=== PATIENT | male | born 1955 | race Caucasian/White ===

== ENCOUNTER 2021-10-08 08:54 | Day surgery (SDC) | payer MEDICARE, BC ==
[2021-10-08] MEDS ORDERED: Lactated Ringers 1,000 ML IV SCH (09:00)
[2021-10-08] MEDS ORDERED: Sodium Chloride 0.9% 10 ML Syringe FLUSH PRN (09:00)
[2021-10-08] MEDS ORDERED: Midazolam 1 MG/ML 2 ML SDV ONE (10:08)
[2021-10-08] MEDS ORDERED: Propofol 200 MG/20 ML SDV ONE (10:09)
[2021-10-08 11:42] VITALS: BP 122/72; PULSE 65
--- NOTE | 2021-10-08 12:52 | PCM.PRNOTE ---
- Free Text/Narrative Note: PROCEDURE PERFORMED: Colonoscopy with polypectomy PRE-PROCEDURE DIAGNOSIS/INDICATION FOR PROCEDURE: Screening for colorectal cancer; 06/18/21 Cologuard positive CONSENT: Informed consent was obtained prior to the procedure after discussion of the risks (including pain, bleeding, infection, perforation, missed polyps, inability to completely remove polyps or complete procedure necessitating repeat colonoscopy, adverse reaction to anesthesia, cardiovascular event), benefits and alternatives and expected outcomes. The patient expressed understanding and wished to proceed. Verbal consent given and consent form signed. PROCEDURAL PAUSE: Completed SEDATION: Per anesthesia DESCRIPTION OF PROCEDURE: Patient was placed in the left lateral decubitus position. After adequate sedation and anesthetic was administered, a rectal exam was performed revealing enlarged prostate of 50g, but no other abnormalities. A lubricated Olympus Video Colonoscope was inserted into the rectum and air insufflation was performed. The colonoscope was advanced through the rectum, sigmoid, descending, transverse, and ascending colon without difficulties. The cecum was reached and the ileocecal valve as well as the appendiceal orifice were identified and pictorially documented. After adequate visualization of the cecum, the scope was withdrawn, giving 360-degree views of the colonic mucosa and retroflexion was performed in the rectum with the following findings noted: Ileocecal valve: Normal Cecum: Normal Ascending colon: Normal Hepatic flexure: Normal Transverse colon: Normal Splenic flexure: Normal Descending colon: Normal Sigmoid colon: At 35cm, 0.8cm polyp removed with cold snare and subsequent complete polypoid tissue removal and hemostasis noted; scattered small mouth diverticulosis Rectum: Normal The scope was straightened, air suction performed, and the scope withdrawn without complication. Preparation adequacy [place] Bowel Score 9/9. IMPRESSION: Colonoscopy performed revealing - One sigmoid polyp, pathology now pending - Sigmoid diverticulosis - Incidental note of increased prostate size at 50g PLAN: Will contact the patient when pathology results received with recommendation for repeat colonoscopy. Encourage adequate fiber diet and bowel regimen to ensure avoidance of constipation. Consider further evaluation for enlarged prostate in the future.
== END 2021-10-08 12:00 | disposition home or self-care (01) ==
LOC: KA.SDS 08:54
PROVIDERS: ATTEND Family Medicine
DX: D12.5 Benign neoplasm of sigmoid colon (principal); K57.30 Diverticulosis of large intestine without perforation or abscess without bleeding; G47.33 Obstructive sleep apnea (adult) (pediatric); I12.9 Hypertensive chronic kidney disease with stage 1 through stage 4 chronic kidney disease, or unspecified chronic kidney disease; N18.31 Chronic kidney disease, stage 3a; E66.9 Obesity, unspecified; R73.03 Prediabetes; E78.2 Mixed hyperlipidemia; J45.909 Unspecified asthma, uncomplicated; G47.30 Sleep apnea, unspecified; Z79.899 Other long term (current) drug therapy
CPT/HCPCS: 00812; J2250; J2704; J7120

== ENCOUNTER 2022-10-12 14:42 | Observation (INO) | payer MEDICARE ==
[2022-10-12] MEDS ORDERED: hydrALAZINE 20 MG/ML SDV IVPUSH ONE ×3 (15:05→20:02)
[2022-10-12] MEDS: Sodium Chloride 0.9% 10 ML Syringe FLUSH PRN ×6 (15:05→18:19)
[2022-10-12 15:48] LABS: ANION GAP 12.2 mmol/L (5-15); CHLORIDE,CL 103 mmol/L (98-107); SODIUM,NA 139 mmol/L (136-145)
[2022-10-12 15:49] LABS: ESTIMATED GFR 70 mL/min (>=60)
[2022-10-12] MEDS ORDERED: HYDROmorphone 1 MG/ML Syringe IVPUSH ONE (16:06)
[2022-10-12] MEDS ORDERED: Ondansetron 4 MG/2 ML SDV IVPUSH ONE (16:39)
[2022-10-12] MEDS ORDERED: cloNIDine 0.1 MG Tab PO ONE (17:44)
[2022-10-12] MEDS ORDERED: Ketorolac 30 MG/ML SDV IM ONE (17:59)
[2022-10-12] MEDS ORDERED: Ketorolac 30 MG/ML SDV IVPUSH ONE (17:59)
[2022-10-12 18:16] LABS: CORONAVIRUS COVID-19 NAA NEGATIVE (NEGATIVE)
[2022-10-12] MEDS ORDERED: Ondansetron 4 MG Tab.DIS PO ONE (19:06)
[2022-10-12] MEDS ORDERED: Sodium Chloride 0.9% 10 ML Syringe FLUSH PRN (19:20)
[2022-10-12] MEDS ORDERED: Sodium Chloride 0.9% 1,000 ML IV ONE ×2 (19:21→21:35)
[2022-10-12] MEDS ORDERED: Promethazine 25 MG/ML SDV IM ONE (21:35)
[2022-10-12] MEDS ORDERED: Iopamidol 755 Mg/ML 75 ML Bottle IVPUSH ONE (21:56)
[2022-10-12] MEDS ORDERED: Sodium Chloride 0.9% 50 ML IV SCH (22:00)
[2022-10-12] MEDS: hydrALAZINE 10 MG Tab PO SCH (23:22)
[2022-10-12] MEDS ORDERED: hydrALAZINE 10 MG Tab PO PRN (23:39)
[2022-10-13] MEDS ORDERED: Acetaminophen 325 MG Tab PO PRN (01:29)
[2022-10-13] MEDS: hydrALAZINE 10 MG Tab PO SCH ×2 (06:42→12:42)
[2022-10-13 07:24] LABS: ANION GAP 9.9 mmol/L (5-15)
[2022-10-13] MEDS ORDERED: Levothyroxine 112 MCG Tab PO SCH (07:30)
[2022-10-13] MEDS ORDERED: Losartan 50 MG Tab PO SCH (09:00)
[2022-10-13] MEDS ORDERED: Levothyroxine 112 MCG Tab**OWN MED PO SCH (09:15)
[2022-10-13 12:10] VITALS: BP 139/72; PULSE 70
== END 2022-10-13 12:58 | disposition home or self-care (01) ==
LOC: KA.ED 14:42 → KA.MS 23:37
PROVIDERS: ADMIT Nurse Practitioner; ATTEND Nurse Practitioner
DX: I10 Essential (primary) hypertension (principal); G44.1 Vascular headache, not elsewhere classified; G43.809 Other migraine, not intractable, without status migrainosus; G93.0 Cerebral cysts; I65.23 Occlusion and stenosis of bilateral carotid arteries; I65.02 Occlusion and stenosis of left vertebral artery; J98.11 Atelectasis; I44.0 Atrioventricular block, first degree; Z20.822 Contact with and (suspected) exposure to COVID-19; Z79.899 Other long term (current) drug therapy; Z79.82 Long term (current) use of aspirin; Z79.890 Hormone replacement therapy
CPT/HCPCS: 0240U; 36415; 70450; 70496; 70498; 71045; 80048; 80053; 84484; 85025; 86140; 93005; 96361; 96372; 96374; 96375; 96376; 99285-25; A9270-GY; G0378; J0360; J1170; J1885; J2405; J2550; J3490; J7030; Q9967

== ENCOUNTER 2023-10-29 08:22 | Emergency (ER) | payer MEDICARE ==
[2023-10-29 08:32] VITALS: BP 151/80; PULSE 67
== END 2023-10-29 09:40 | disposition home or self-care (01) ==
LOC: KA.ED 08:22
DX: M25.552 Pain in left hip (principal); I10 Essential (primary) hypertension; E78.00 Pure hypercholesterolemia, unspecified; M19.90 Unspecified osteoarthritis, unspecified site; E03.9 Hypothyroidism, unspecified; Z79.82 Long term (current) use of aspirin; Z79.899 Other long term (current) drug therapy
CPT/HCPCS: 73700-LT; 99283